=== PATIENT | female | born 2000 | race Caucasian/White ===

== ENCOUNTER 2020-03-30 13:05 | Inpatient (IN) ==
[2020-03-30] MEDS ORDERED: Famotidine 20 MG/2 ML VIAL IVP PRN (13:17)
[2020-03-30] MEDS ORDERED: Naloxone 0.4 MG/ML INJ IVP PRN (13:17)
[2020-03-30] MEDS ORDERED: Metoclopramide 10 MG/2 ML VIAL IVP PRN (13:17)
[2020-03-30] MEDS ORDERED: Ondansetron 4 MG/2 ML VIAL IVP PRN (13:17)
[2020-03-30] MEDS ORDERED: miSOPROStoL 25 MCG TABLET PO SCH (14:15)
[2020-03-30] MEDS ORDERED: Ropivacaine/PF 0.2% 20 ML VIAL EP ONE (14:27)
[2020-03-30] MEDS ORDERED: *HR* FentaNYL (PF) 100 MCG/2 ML VIAL EP ONE (14:27)
[2020-03-30] MEDS ORDERED: EPHEDrine 50 MG/ML VIAL IVP PRN (14:27)
[2020-03-30] MEDS ORDERED: Ropivacaine/PF 0.2% 20 ML VIAL ONE (14:28)
[2020-03-30] MEDS ORDERED: *HR* FentaNYL (PF) 100 MCG/2 ML VIAL ONE ×2 (14:28→22:03)
[2020-03-30] MEDS ORDERED: Epidural Premix (fent/bupiv) 110 ML EP SCH (14:30)
[2020-03-30] MEDS: Ringers Solution, Lactated 1,000 ML IVC SCH (14:32)
[2020-03-30 14:35] LABS: Basophils % 0.2 %; Eosinophils # 0.1 K/mcL (0.0-0.6); Eosinophils % 0.8 %; Hematocrit 39.4 % (35.3-44.9); Hemoglobin 12.3 g/dL (11.5-15.4); Immature Granulocytes % 0.5 % (0-4); Lymphocytes # 2.4 K/mcL (0.6-4.6); Lymphocytes % 22.4 %; Mean Corpuscular HGB Conc 31.2 g/dL (31.6-35.5); Mean Corpuscular Volume 83.3 fL (83.0-100.0); Mean Platelet Volume 11.1 fL (9.4-12.4); Monocytes # 0.7 K/mcL (0.0-1.3); Monocytes % 6.7 %; Neutrophils # 7.4 K/mcL (1.6-8.9); Platelet Count 285 K/mcL (140-400); Red Blood Count 4.73 M/mcL (3.82-4.97); Red Cell Distribution Width 14.1 % (11.5-14.5); Segmented Neutrophils % 69.4 %; White Blood Count 10.7 K/mcL (4.3-11.1)
[2020-03-30 14:44] LABS: Amphetamine Screen,Urine Negative ng/mL (Cutoff=1000); Barbiturate Screen,Urine Negative ng/mL (Cutoff=200); Benzodiazepines Screen,Urine Negative ng/mL (Cutoff=200); Cannabinoid Screen,Urine Negative ng/mL (Cutoff = 50); Cocaine Screen,Urine Negative ng/mL (Cutoff= 300); Opiate Screen,Urine Negative ng/mL (Cutoff=300); Phencyclidine Screen,Urine Negative ng/mL (Cutoff=25)
[2020-03-30] MEDS ORDERED: miSOPROStoL 25 MCG TABLET PO ONE (19:01)
[2020-03-30] MEDS ORDERED: *HR* FentaNYL (PF) 100 MCG/2 ML VIAL IVP PRN (19:50)
[2020-03-30] MEDS ORDERED: Oxytocin 20 units/ LR 1000 mL 20 UNIT/1,000 ML BAG IVC ONE (23:31)
[2020-03-30] MEDS ORDERED: Oxytocin 20 units/ LR 1000 mL 20 UNIT/1,000 ML BAG IVC SCH (23:45)
[2020-03-31] MEDS ORDERED: *HR* FentaNYL (PF) 100 MCG/2 ML VIAL ONE (05:08)
[2020-03-31] MEDS: Ringers Solution, Lactated 1,000 ML IVC SCH (06:41)
[2020-03-31 11:04] LABS: Adenovirus Not Detected (Not Detect); Bordetella Pertussis Not Detected (Not Detect); Chlamydophila pneumoniae Not Detected (Not Detect); Coronavirus 229E Not Detected (Not Detect); Coronavirus HKU1 Not Detected (Not Detect); Coronavirus NL63 Not Detected (Not Detect); Coronavirus OC43 Not Detected (Not Detect); Human Metapneumovirus Not Detected (Not Detect); Human Rhinovirus/Enterovirus Not Detected (Not Detect); Influenza A Subtype 2009 H1 Not Detected (Not Detect); Influenza B Not Detected (Not Detect); Mycoplasma pneumoniae Not Detected (Not Detect); Parainfluenza Virus 1 Not Detected (Not Detect); Parainfluenza Virus 2 Not Detected (Not Detect); Parainfluenza Virus 3 Not Detected (Not Detect); Parainfluenza Virus 4 Not Detected (Not Detect); Respiratory Syncytial Virus Not Detected (Not Detect); SARS-CoV-2 Not Detected (Not Detect)
[2020-03-31] MEDS ORDERED: Azithromycin 500 MG in 0.9 % Sodium Chloride 250 ML IVPB ONE (12:25)
[2020-03-31] MEDS ORDERED: CeFAZolin Syr 3,000MG/30 ML 3,000 MG/30 ML SYRINGE IVPB ONE (12:25)
[2020-03-31] MEDS ORDERED: Bupivacaine/EPI 1:200k 0.25%PF 10 ML VIAL INFILT ONE (12:44)
[2020-03-31] MEDS ORDERED: Lidocaine -MPF 2% 5 ML VIAL ONE (12:45)
[2020-03-31] MEDS ORDERED: Acetaminophen IV 1,000 MG/100 ML BAG ONE (13:56)
[2020-03-31] MEDS ORDERED: Ondansetron 4 MG/2 ML VIAL ONE (13:56)
[2020-03-31] MEDS ORDERED: Ringers Solution, Lactated 1,000 ML ONE (13:58)
[2020-03-31] MEDS ORDERED: *HR* Morphine Sulfate/PF 10 MG/10 ML AMPUL ONE (14:23)
[2020-03-31] MEDS ORDERED: Ketorolac 30 MG/ML VIAL ONE (14:43)
[2020-03-31 15:55] LABS: Basophils % 0.1 %; Hematocrit 36.1 % (35.3-44.9); Hemoglobin 11.5 g/dL (11.5-15.4); Immature Granulocytes % 0.5 % (0-4); Lymphocytes % 4.4 %; Mean Corpuscular HGB Conc 31.9 g/dL (31.6-35.5); Mean Corpuscular Hemoglobin 26.3 pg (28.0-33.3); Mean Corpuscular Volume 82.6 fL (83.0-100.0); Mean Platelet Volume 10.8 fL (9.4-12.4); Monocytes # 1.1 K/mcL (0.0-1.3); Monocytes % 4.9 %; Neutrophils # 19.9 K/mcL (1.6-8.9); Platelet Count 271 K/mcL (140-400); Red Blood Count 4.37 M/mcL (3.82-4.97); Red Cell Distribution Width 14.1 % (11.5-14.5); Segmented Neutrophils % 90.1 %
[2020-03-31 15:56] LABS: White Blood Count 22.1 K/mcL (4.3-11.1)
[2020-03-31] MEDS ORDERED: Oxytocin 20 units/ LR 1000 mL 20 UNIT/1,000 ML BAG IVC SCH (16:01)
[2020-03-31] MEDS ORDERED: Metoclopramide 10 MG/2 ML VIAL IVP PRN (16:01)
[2020-03-31] MEDS ORDERED: Ondansetron 4 MG/2 ML VIAL IVP PRN (16:01)
[2020-03-31] MEDS ORDERED: Rho Immune Globulin 1,500 UNIT SYRINGE IM ONE (16:01)
[2020-03-31] MEDS: *HR* OxyCODONE Immed Rel 5 MG TABLET PO PRN (16:27)
[2020-03-31] MEDS ORDERED: Ringers Solution, Lactated 500 ML IVC ONE (21:10)
[2020-03-31] MEDS: Ringers Solution, Lactated 1,000 ML ONE (23:26)
[2020-04-01] MEDS: Ibuprofen 600 MG TABLET PO SCH ×4 (00:04→17:32)
[2020-04-01] MEDS: Acetaminophen 325 MG TABLET PO SCH ×4 (00:06→17:32)
[2020-04-01] MEDS ORDERED: Ringers Solution, Lactated 1,000 ML ONE (03:09)
[2020-04-01] MEDS: Ringers Solution, Lactated 1,000 ML ONE (03:12)
[2020-04-01 05:51] LABS: Basophils % 0.2 %; Eosinophils # 0.1 K/mcL (0.0-0.6); Eosinophils % 0.3 %; Hematocrit 30.4 % (35.3-44.9); Immature Granulocytes % 0.5 % (0-4); Lymphocytes # 2.6 K/mcL (0.6-4.6); Mean Corpuscular HGB Conc 31.6 g/dL (31.6-35.5); Mean Corpuscular Hemoglobin 26.5 pg (28.0-33.3); Mean Platelet Volume 10.4 fL (9.4-12.4); Monocytes # 1.2 K/mcL (0.0-1.3); Monocytes % 5.8 %; Platelet Count 259 K/mcL (140-400); Red Blood Count 3.62 M/mcL (3.82-4.97); Red Cell Distribution Width 14.4 % (11.5-14.5); Segmented Neutrophils % 80.2 %; White Blood Count 19.9 K/mcL (4.3-11.1)
[2020-04-01 05:54] LABS: Hemoglobin 9.6 g/dL (11.5-15.4)
[2020-04-01] MEDS: *HR* Enoxaparin 60 MG/0.6 ML SYRINGE SQ SCH ×2 (06:06→17:33)
[2020-04-01] MEDS: Prenatal Vit/FA 1 EACH TABLET PO SCH (08:53)
[2020-04-01] MEDS: *HR* OxyCODONE Immed Rel 5 MG TABLET PO PRN ×2 (08:53→15:24)
[2020-04-01] MEDS: Simethicone 80 MG TAB.CHEW PO PRN ×2 (08:53→15:25)
[2020-04-01] MEDS ORDERED: NON-FORMULARY MEDICATION 1 EACH EACH (Prenatal 19 Tablet 1 TAB) PO SCH (09:00)
[2020-04-02] MEDS: Ibuprofen 600 MG TABLET PO SCH ×3 (01:09→12:30)
[2020-04-02] MEDS: Simethicone 80 MG TAB.CHEW PO PRN (01:09)
[2020-04-02] MEDS: Acetaminophen 325 MG TABLET PO SCH ×3 (01:09→12:30)
[2020-04-02] MEDS: *HR* Enoxaparin 60 MG/0.6 ML SYRINGE SQ SCH (06:00)
[2020-04-02 07:48] VITALS: BP 135/71
[2020-04-02] MEDS: *HR* OxyCODONE Immed Rel 5 MG TABLET PO PRN ×2 (08:30→12:30)
[2020-04-02] MEDS: Prenatal Vit/FA 1 EACH TABLET PO SCH (08:30)
== END 2020-04-02 16:49 | disposition home or self-care (01) | DRG 540 ==
LOC: 1NENULAB 13:05 → 1NENUOBS 03-31 17:09
PROVIDERS: ADMIT Obstetrics & Gynecology; ATTEND Obstetrics & Gynecology